=== PATIENT | female | born 1995 | race Hispanic/Latino ===

== ENCOUNTER 2024-09-04 08:31 | Inpatient (IN) | payer SELFPAY ==
[2024-09-04] MEDS ORDERED: Ondansetron 4 MG/2 ML SDV IVPUSH PRN (10:58)
[2024-09-04] MEDS ORDERED: Nalbuphine 10 MG/1 ML Vial IVPUSH PRN (10:58)
[2024-09-04] MEDS ORDERED: Sodium Chloride 0.9% 10 ML Syringe FLUSH PRN (10:58)
[2024-09-04] MEDS ORDERED: Lidocaine 1% 50 ML MDV INJECT PRN (10:58)
[2024-09-04] MEDS ORDERED: Oxytocin/0.9 % Sodium Chloride 30 UNIT/500 ML BAG IV SCH (11:00)
[2024-09-04 11:28] LABS: BASOPHILS PERCENT AUTO 0.1 % (0.0-1.0); EOSINOPHILS PERCENT AUTO 0.4 % (0.0-6.0); HEMATOCRIT 37.3 % (37.0-47.0); HEMOGLOBIN 12.6 gm/dl (12.0-16.0); IMMATURE GRAN ABSOLUTE AUTO 0.04 K/mm3 (0.00-0.05); IMMATURE GRAN PERCENT AUTO 0.5 % (0.0-0.4); LYMPHOCYTES ABSOLUTE AUTO 1.9 K/mm3 (1.0-4.8); MEAN CORPUSCULAR HEMOGLOBIN 31.7 pg (28.0-32.0); MEAN CORPUSCULAR HGB CONC 33.8 g/dl (32.0-36.0); MEAN CORPUSCULAR VOLUME 93.7 fl (83.0-99.0); MEAN PLATELET VOLUME 11.4 fl (9.4-12.3); MONOCYTES ABSOLUTE AUTO 0.8 K/mm3 (0.0-0.8); MONOCYTES PERCENT AUTO 10.3 % (0.0-8.0); NEUTROPHILS ABSOLUTE AUTO 4.7 K/mm3 (1.8-7.7); NEUTROPHILS PERCENT AUTO 63.7 % (41.0-71.0); PLATELET COUNT,PLT 247 K/mm3 (150-400); RED BLOOD CELL COUNT 3.98 M/mm3 (4.10-5.30); WHITE BLOOD CELL COUNT,WBC 7.41 K/mm3 (3.9-11.3)
[2024-09-04] MEDS ORDERED: ePHEDrine 50 MG/ML SDV IVPUSH PRN (14:08)
[2024-09-04] MEDS ORDERED: diphenhydrAMINE 50 MG/ML SDV IVPUSH PRN (14:08)
[2024-09-04] MEDS: Lactated Ringers 1,000 ML IV SCH (14:35)
[2024-09-04] MEDS: Oxytocin/0.9 % Sodium Chloride 30 UNIT/500 ML BAG IV SCH (14:35)
[2024-09-05] MEDS ORDERED: Bupivacaine 0.25% 10 ML SDV ONE
[2024-09-05] MEDS: Bupivacaine/fentaNYL/NS 100 ML Bag EPIDUR PRN (00:02)
[2024-09-05] MEDS: fentaNYL 100 MCG/2 ML SDV EPIDUR PRN (00:03)
[2024-09-05] MEDS: Lactated Ringers 1,000 ML IV ONE (03:27)
[2024-09-05] MEDS: Acetaminophen 325 MG Tab PO ONE (03:28)
[2024-09-05] MEDS: Ampicillin 2 GM in Sodium Chloride 0.9% 100 ML IV SCH (03:34)
[2024-09-05] MEDS: Gentamicin 400 MG in Sodium Chloride 0.9% 100 ML IV SCH (03:54)
[2024-09-05] MEDS ORDERED: Ondansetron 4 MG/2 ML SDV ONE (07:42)
[2024-09-05] MEDS ORDERED: Lidocaine 2% with EPINEPHrine 1:200,000 20 ML SDV ONE (07:42)
[2024-09-05] MEDS ORDERED: Phenylephrine 1% 10 MG/ML SDV ONE (07:44)
[2024-09-05] MEDS ORDERED: ceFAZolin 2 GM in Sodium Chloride 0.9% 50 ML IV ONE (07:46)
[2024-09-05] MEDS: Citric Acid/Sodium Citrate Solution 30 ML Cup PO ONE (07:49)
[2024-09-05] MEDS: Metoclopramide 10 MG/2 ML SDV IVPUSH ONE (07:49)
[2024-09-05] MEDS: Azithromycin 500 MG in Sodium Chloride 0.9% 250 ML IV ONE (07:58)
[2024-09-05] MEDS ORDERED: Oxytocin/0.9 % Sodium Chloride 30 UNIT/500 ML BAG IV SCH ×2 (08:00→10:09)
[2024-09-05] MEDS ORDERED: ceFAZolin 2 GM Vial IVPUSH ONE (08:00)
[2024-09-05] MEDS ORDERED: Lactated Ringers 1,000 ML IV SCH (08:00)
[2024-09-05] MEDS ORDERED: ceFAZolin 2 GM Vial ONE (08:16)
[2024-09-05] MEDS: Bupivacaine 0.5% 30 ML SDV ONE (08:24)
[2024-09-05] MEDS ORDERED: Ketorolac 30 MG/ML SDV ONE (08:26)
[2024-09-05] MEDS ORDERED: Morphine PF 10 MG/10 ML SDV ONE (08:27)
[2024-09-05] MEDS ORDERED: diphenhydrAMINE 50 MG/ML SDV IVPUSH PRN ×2 (09:16→10:09)
[2024-09-05] MEDS ORDERED: Ondansetron 4 MG/2 ML SDV IVPUSH PRN (09:16)
[2024-09-05] MEDS ORDERED: Meperidine 50 MG/ML Vial IVPUSH PRN (09:16)
[2024-09-05] MEDS ORDERED: fentaNYL 100 MCG/2 ML SDV IVPUSH PRN (09:16)
[2024-09-05] MEDS ORDERED: Magnesium Hydroxide 400 MG/5 ML Susp 30 ML Cup PO PRN (10:09)
[2024-09-05] MEDS ORDERED: Ondansetron 4 MG Tab.DIS PO PRN (10:09)
[2024-09-05] MEDS ORDERED: Naloxone 0.4 MG/ML SDV IVPUSH PRN (10:09)
[2024-09-05] MEDS ORDERED: ePHEDrine 50 MG/ML SDV IVPUSH PRN (10:09)
[2024-09-05] MEDS: Dextrose 5%-Lactated Ringers 1,000 ML IV SCH (10:16)
[2024-09-05] MEDS: oxyCODONE 5 MG Tab PO PRN (10:17)
[2024-09-05] MEDS: Acetaminophen 325 MG Tab PO SCH (10:19)
[2024-09-05] MEDS: Simethicone 80 MG Tab.Chew PO SCH (13:17)
[2024-09-05] MEDS: Ketorolac 30 MG/ML SDV IVPUSH SCH (15:02)
[2024-09-05] MEDS: Ampicillin 2 GM in Sodium Chloride 0.9% 100 ML IV ONE (15:10)
[2024-09-05] MEDS: Docusate Sodium 100 MG Cap PO SCH (20:18)
[2024-09-06 07:06] LABS: HEMATOCRIT 29.4 % (37.0-47.0); HEMOGLOBIN 9.9 gm/dl (12.0-16.0); MEAN CORPUSCULAR HEMOGLOBIN 31.5 pg (28.0-32.0); MEAN CORPUSCULAR HGB CONC 33.7 g/dl (32.0-36.0); MEAN CORPUSCULAR VOLUME 93.6 fl (83.0-99.0); MEAN PLATELET VOLUME 10.9 fl (9.4-12.3); PLATELET COUNT,PLT 173 K/mm3 (150-400); RED BLOOD CELL COUNT 3.14 M/mm3 (4.10-5.30); WHITE BLOOD CELL COUNT,WBC 12.21 K/mm3 (3.9-11.3)
[2024-09-06] MEDS: Ibuprofen 600 MG Tab PO SCH (09:52)
[2024-09-06] MEDS: Prenatal Multivitamin with Calcium/Folic Acid/Iron Tab PO SCH (09:52)
[2024-09-06] MEDS: Acetaminophen 325 MG Tab PO SCH (09:54)
[2024-09-06] MEDS: oxyCODONE 5 MG Tab PO PRN (09:55)
== END 2024-09-07 22:10 | disposition home or self-care (01) | DRG 786 ==
LOC: JD.OBCHECK 08:31 → JD.OB 08:44 → JD.OBCHECK 10:58 → JD.OB 10:59 → OBSVTOIN 09-05 08:28 → JD.OB 09-05 08:29
PROVIDERS: ADMIT Obstetrics & Gynecology; ATTEND Obstetrics & Gynecology
PROC: 3E033VJ Introduction of Other Hormone into Peripheral Vein, Percutaneous Approach (ICD-10-PCS; 2024-09-05)
PROC: 10907ZC Drainage of Amniotic Fluid, Therapeutic from Products of Conception, Via Natural or Artificial Opening (ICD-10-PCS; 2024-09-05)
PROC: 10D00Z1 Extraction of Products of Conception, Low, Open Approach (ICD-10-PCS; principal; 2024-09-05 08:15)
DX: O42.02 Full-term premature rupture of membranes, onset of labor within 24 hours of rupture (principal); O41.1230 Chorioamnionitis, third trimester, not applicable or unspecified; E78.72 Smith-Lemli-Opitz syndrome; O99.892 Other specified diseases and conditions complicating childbirth; Z3A.40 40 weeks gestation of pregnancy; O76 Abnormality in fetal heart rate and rhythm complicating labor and delivery; O36.63X0 Maternal care for excessive fetal growth, third trimester, not applicable or unspecified; Z37.0 Single live birth
CPT/HCPCS: 01967; 01968; 36415; 51702; 59025; 84112; 85025; 85027; 86592; 86850; 86900; 86901; 94762; 99140; A9270-GY; J0290; J0456; J0665; J0690; J1580; J1885; J2274; J2371; J2405; J2765; J3010; J3490; J7050; J7120; J7121; J7999